=== PATIENT | male | born 1985 | race Hispanic/Latino ===

== ENCOUNTER 2018-11-13 10:24 | Emergency (ER) | payer OTHER ==
[2018-11-13 10:35] VITALS: RESP 18; O2SAT 98; BMI 32.5
[2018-11-13] MEDS ORDERED: Sodium Chloride 0.9% 1,000 ML IV STA (10:54)
--- NOTE | 2018-11-13 10:57 | ED PDOC ---
HPI: General Adult Time Seen by Provider: 11/13/18 10:54 Chief Complaint (Nursing): Male Genitourinary Chief Complaint (Provider): HEMATURIA History Per: Patient (33 Y/O MALE HERE WITH CHRISTIAN HEMATURIA NOTED X 1 DAY. DENIES ANY ABDOMINAL/BACK PAIN. DENIES ANY FEVER/VOMITING. ) Past Medical History Reviewed: Historical Data, Nursing Documentation, Vital Signs Vital Signs: Last Vital Signs Temp 97.6 F 11/13/18 10:34 Pulse 93 H 11/13/18 10:34 Resp 18 11/13/18 10:34 BP 152/101 H 11/13/18 10:34 Pulse Ox 98 11/13/18 10:34 Primary Care Provider: Non [facility] Provider, - Medical History PMH: Anxiety, Diabetes, HTN - Family History Family History: States: No Known Family Hx - Home Medications Home Medications: Ambulatory Orders Medication Instructions Recorded Hydrocodone/Acetaminophen 1 tab PO QID PRN #23 tab 06/14/15 [Hydrocodone-Acetaminophen 325 mg-5 mg] Cephalexin [Keflex] 500 mg PO TID #21 capsule 11/13/18 - Allergies Allergies/Adverse Reactions: Allergies Allergy/AdvReac Type Severity Reaction Status Date / Time No Known Allergies Allergy Verified 04/01/15 19:09 Review of Systems ROS Statement: Except As Marked, All Systems Reviewed And Found Negative Genitourinary Male: Positive for: Hematuria Physical Exam - Reviewed Nursing Documentation Reviewed: Yes Vital Signs Reviewed: Yes - Physical Exam Appears: Positive for: Well, Non-toxic, No Acute Distress Head Exam: Positive for: ATRAUMATIC, NORMAL INSPECTION, NORMOCEPHALIC Skin: Positive for: Normal Color, Warm, DRY Eye Exam: Positive for: EOMI, Normal appearance, PERRL ENT: Positive for: Normal ENT Inspection Neck: Positive for: Normal, Painless ROM Cardiovascular/Chest: Positive for: Regular Rate, Rhythm Respiratory: Positive for: CNT, Normal Breath Sounds Gastrointestinal/Abdominal: Positive for: Normal Exam, Soft Back: Positive for: Normal Inspection Extremity: Positive for: Normal ROM Neurological/Psych: Positive for: Awake, Alert, Normal Tone - Laboratory Results Result Diagrams: 11/13/18 11:16 11/13/18 11:16 - ECG O2 Sat by Pulse Oximetry: 98 Disposition - Clinical Impression Clinical Impression: Urinary tract infection - Patient ED Disposition Is Patient to be Admitted: No - Disposition Referrals: Joe Soria Jr., MD [Staff Provider] - Disposition: Routine/Home Disposition Time: 12:36 Condition: FAIR Prescriptions: Cephalexin [Keflex] 500 mg PO TID #21 capsule Instructions: Urinary Tract Infections in Adults, Blood in the Urine (Hematuria), Adult (DC) Forms: [facility] ED School/Work Excuse
[2018-11-13 11:23] LABS: BASO # 0.1 K/uL (0.0-0.2); BASO % 0.5 % (0.0-2.0); EOS # 0.4 K/uL (0.0-0.7); EOS % 3.2 % (0.0-4.0); HEMOGLOBIN 14.5 g/dL (12.0-18.0); LYMPH # 4.1 K/uL (1.0-4.3); LYMPH % 36.6 % (20.0-40.0); MEAN CELL VOLUME 93.2 fl (80.0-94.0); MEAN CORPUSCULAR HGB CONC 35.4 g/dL (33.0-37.0); MONO # 1.1 K/uL (0.0-0.8); MONO % 9.6 % (0.0-10.0); NEUT # 5.6 K/uL (1.8-7.0); NEUT % 50.1 % (50.0-75.0); RBC 4.4 Mil/uL (4.40-5.90); RED CELL DISTRIBUTION WIDTH 12.4 % (11.5-14.5); WHITE BLOOD COUNT 11.3 K/uL (4.8-10.8)
[2018-11-13 11:30] LABS: ALB/GLOB RATIO 1.3 (1.0-2.1); ALBUMIN 4.4 g/dL (3.5-5.0); ALT/SGPT 122 U/L (21-72); AST/SGOT 75 U/L (17-59); BLOOD UREA NITROGEN 10 mg/dl (9-20); CALCIUM 9.6 mg/dL (8.4-10.2); GFR NON-AFRICAN AMERICAN > 60
[2018-11-13 11:35] LABS: INR 1.1; PROTHROMBIN TIME 12.6 Seconds (9.8-13.1)
[2018-11-13 11:37] LABS: PARTIAL THROMBOPLASTIN TIME 30.6 Seconds (25.6-37.1)
[2018-11-13 11:41] LABS: URINE BACTERIA OCC (<OCC); URINE BILIRUBIN NEGATIVE (NEGATIVE); URINE BLOOD LARGE (NEGATIVE); URINE CLARITY CLOUDY (Clear); URINE COLOR RED (YELLOW); URINE GLUCOSE (UA) 50 mg/dL (NEGATIVE); URINE LEUKOCYTE ESTERASE NEG Leu/uL (Negative); URINE PROTEIN 100 mg/dL (NEGATIVE); URINE UROBILINOGEN 0.2-1.0 mg/dL (0.2-1.0)
--- NOTE | 2018-11-13 12:20 | CT ---
Date of service: 11/13/2018 PROCEDURE: CT abdomen pelvis. HISTORY: Wagner hematuria. Rule out kidney stone. COMPARISON: None. TECHNIQUE: Contiguous axial images of the abdomen and pelvis. Oral contrast was administered. No IV contrast given. Coronal and Sagittal reformats generated. Radiation dose: Total exam DLP = 908.17 mGy-cm. This CT exam was performed using one or more of the following dose reduction techniques: Automated exposure control, adjustment of the mA and/or kV according to patient size, and/or use of iterative reconstruction technique. FINDINGS: LOWER THORAX: Unremarkable. LIVER: Liver is enlarged measuring nearly 24 cm in CC dimension. Mild diffuse fatty hepatic infiltration. No obvious hepatic mass collection or calcification. GALLBLADDER AND BILE DUCTS: Gallbladder appears to be incompletely distended with slight thick-walled appearance. No evidence of intraluminal gallbladder calculi. PANCREAS: Unremarkable. No mass. No ductal dilatation. SPLEEN: Unremarkable. No splenomegaly. ADRENALS: Unremarkable. KIDNEYS AND URETERS: Left kidney is absent with hypertrophy of the right kidney (presumably compensatory). No evidence of nephrolithiasis or hydronephrosis.. BLADDER: The urinary bladder is incompletely distended which in part accounts for slight thick-walled appearance. Muscular hypertrophy presumably contributes. The possibility of cystitis or other intrinsic/invasive wall lesion (including but not limited to bladder carcinoma) given the patient's history of hematuria must be considered. Clinical correlation recommended. REPRODUCTIVE: Few small prostatic calcifications are present. APPENDIX: Normal appendix. BOWEL: Evaluation of the bowel is somewhat limited due to the lack of oral contrast material. Stomach is distended with food debris liquid and air. Visualized loops of small bowel exhibit normal contour and caliber. No evidence of acute mechanical small bowel obstruction. Stool and air seen throughout the large bowel. Moderate amount of stool seen within the large bowel consistent with constipation. Scattered colonic diverticula however no radiographic evidence of acute diverticulitis. PERITONEUM: Unremarkable. No fluid collection. No free air. LYMPH NODES: Unremarkable. No enlarged lymph nodes. VASCULATURE: Unremarkable. No aortic aneurysm. No aortic atherosclerotic calcification or mural plaque present. BONES: No fracture or destructive lesion. OTHER FINDINGS: None. IMPRESSION: Absent left kidney. Urinary bladder is incompletely distended which in part accounts for thick-walled appearance however muscular hypertrophy presumably contributes. Other intrinsic/invasive wall lesion including but not limited to bladder carcinoma given the patient's history of hematuria should be excluded. Clinical correlation recommended. Hepatomegaly. Diverticulosis without radiographic evidence of acute diverticulitis. Constipation.
[2018-11-13 13:23] VITALS: BP 146/92; PULSE 88; TEMP 97.8
== END 2018-11-13 13:21 | disposition home or self-care (01) ==
LOC: H.ER 10:24
DX: N39.0 Urinary tract infection, site not specified (principal); E11.9 Type 2 diabetes mellitus without complications; I10 Essential (primary) hypertension
CPT/HCPCS: 74176; 80053; 81003; 82948; 85025; 85610; 85730; 87086; 87491; 87591; 96360; 99283; J7030